=== PATIENT | male | born 1990 | race Caucasian/White ===

== ENCOUNTER 2024-09-09 07:23 | Emergency (ER) | payer OTHER, SELFPAY ==
[2024-09-09] VITALS (7 sets, daily range): BP systolic 132–180; BP diastolic 80–102; PULSE 51–82; RESP 18–24; TEMP 36.5; O2SAT 95–100; BMI 27.1
--- NOTE | 2024-09-09 07:52 | PC.NURSE ---
Pt arrived to ED today because he has been having 5/10 substernal & left-sided cp since yesterday afternoon. States that when he palpates his sternum and left chest the pain gets worse. Denies SOB, n/v and abd pain. Also states that he drinks approximately 375ml hard etoh per day. Currently denies any withdrawal sx or hx of withdrawal. A&Ox4.
--- NOTE | 2024-09-09 07:56 | EKG_ITS ---
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
--- NOTE | 2024-09-09 07:56 | DI.RAD.S_ITS ---
PROCEDURE: XR CHEST 1V INDICATIONS: chest pain TECHNIQUE: One view of the chest was acquired. COMPARISON: None. FINDINGS: Surgical changes and devices: None. Lungs and pleura: Lungs are clear. No pleural effusions or pneumothorax. Mediastinum: Mediastinal contours appear normal. Heart size is normal. Bones and chest wall: No suspicious bony lesions. Overlying soft tissues appear unremarkable. IMPRESSION: No acute cardiopulmonary pathology. Dictated by: Matt Jj M.D. on 09/09/2024 at 8:24 Approved by: Matt Jj M.D. on 09/09/2024 at 8:24
[2024-09-09 08:02] LABS: Add Manual Diff / Slide Review NO; Basophils Absolute Auto 0 /uL (0-100); Basophils Percent Auto 0.6 % (0-2); Eosinophils Absolute Auto 200 /uL (0-450); Eosinophils Percent Auto 3.5 % (2-4); Hematocrit 48.9 % (41-53); Hemoglobin 16.8 g/dL (13.5-17.5); Lymphocytes Absolute Auto 1900 /uL (1100-4500); Mean Corpuscular HGB Conc 34.4 % (30-36); Mean Corpuscular Hemoglobin 33.3 PG (26-34); Mean Corpuscular Volume 96.6 fL (80-100); Monocytes Absolute Auto 500 /uL (0-900); Monocytes Percent Auto 7.4 % (3-14); Neutrophils Absolute Auto 3600 /uL (1500-7000); Neutrophils Percent Auto 57.5 % (50-75); Platelet Count 223 X10^3/uL (150-400); Red Blood Cell Count 5.06 X10^6/uL (4.5-5.9); Red Cell Distribution Width 13.1 % (11.6-14.8); White Blood Cell Count 6.3 X10^3/uL (4.5-11.0)
[2024-09-09 08:04] LABS: INR 0.9 (0.9-1.3); Prothrombin Time 10.6 SECONDS (9.4-12.5)
[2024-09-09 08:07] LABS: PTT Partial Thromboplastin Tim 35 SECONDS (25.1-36.5)
--- NOTE | 2024-09-09 08:08 | ED_ITS ---
HPI - Chest Pain General Chief Complaint: Chest Pain Stated Complaint: chest Pain Time Seen by Provider: 09/09/24 08:00 History of Present Illness HPI narrative: patient here for constant left-sided chest pain that is reproducible with deep breath cough movement and palpation. Denies any prior history of heart attack strokes diabetes no history hypertension. No pertinent family history of coronary artery disease. Patient does not smoke. Does not have hypercholesteremia. Blood pressure noted. Patient in no distress. Patient has not tried any medications for his discomfort. Discomfort started yesterday. No cough cold congestion fever chills. No muscle strain. Related Data Allergies Allergy/AdvReac Type Severity Reaction Status Date / Time No Known Drug Allergies Allergy Verified 09/09/24 07:32 Review of Systems Review of Systems Narrative: GENERAL: Negative chills, fatigue, malaise, fever, sweats. HEENT: Negative sinus pain, ear pain, sore throat RESPIRATORY: Negative dyspnea, cough CARDIOVASCULAR: Positive chest pain, negative palpitations GASTROINTESTINAL: Negative vomiting, nausea, abdominal pain : Negative dysuria, frequency, hematuria MUSCULOSKELETAL: Negative muscle or bony pain SKIN: Negative rash, skin lesions NEUROLOGIC: Negative weakness, numbness ROS Unobtainable: All systems reviewed & are unremarkable except as noted in HPI and below Patient History Social History Smoking Status: Unknown if ever smoked Smoking Status: Unknown if ever smoked Alcohol type: hard liquor Exam Narrative Exam Narrative: GENERAL: in no distress, not toxic not dyspneic HEAD: Normocephalic. EYES: Pupils equal round ENT: Mucous membranes moist. NECK: Trachea midline. CARDIOVASCULAR: Regular rate and rhythm RESPIRATORY: Clear to auscultation. Breath sounds equal bilaterally. No wheezes, rales, or rhonchi. Reproducible left pectoral chest tenderness and sternal tenderness on palpation and on deep breath and coughing and movement. No crepitus. No rash. GASTROINTESTINAL: Abdomen soft, non-tender EXTREMITIES: No gross deformities. BACK: No flank tenderness. NEURO: AOx4. Clear speech SKIN: Warm and dry PSYCH: Not anxious, is cooperative Initial Vital Signs Initial Vital Signs: Vital Signs Pulse Rate 51 L 09/09/24 07:32 Respiratory Rate 18 09/09/24 07:32 Blood Pressure 180/102 H 09/09/24 07:32 Pulse Oximetry 100 09/09/24 07:32 Oxygen Delivery Method Room Air 09/09/24 07:32 Scores HEART Score Heart Score history: Slightly Suspicious Heart Score EKG: Non-Specific repolarization disturbance Heart Score Age: < 45 years old Heart Score risk factors: No known risk factors Heart Score troponin: < or = to normal limit Heart Score Total: 1 Course Orders Ordered: Discontinued Medications Aspirin (Aspirin 81 Mg Chew Tab) 324 mg PO NOW ONE Stop: 09/09/24 07:57 Last Admin: 09/09/24 08:36 Dose: 324 mg Documented By: LEA Ketorolac Tromethamine (Ketorolac 30 Mg/Ml Vial) 15 mg IV NOW ONE Stop: 09/09/24 09:30 Last Admin: 09/09/24 09:42 Dose: Not Given Documented By: LEA Vital Signs Vital signs: Vital Signs - 8 hr 09/09/24 07:32 09/09/24 07:32 09/09/24 07:37 Temperature Pulse Rate 51 L 82 68 Respiratory Rate 18 23 Blood Pressure 180/102 H Pulse Oximetry 100 100 99 Oxygen Delivery Method Room Air 09/09/24 07:37 09/09/24 07:39 09/09/24 08:00 Temperature 97.7 F Pulse Rate Respiratory Rate Blood Pressure 151/86 H 142/91 H Pulse Oximetry Oxygen Delivery Method 09/09/24 08:00 09/09/24 08:30 09/09/24 08:30 Temperature Pulse Rate 66 62 Respiratory Rate 24 20 Blood Pressure 132/80 Pulse Oximetry 95 97 Oxygen Delivery Method 09/09/24 09:00 09/09/24 09:00 Temperature Pulse Rate 63 Respiratory Rate 21 Blood Pressure 143/85 H Pulse Oximetry 96 Oxygen Delivery Method MDM - Chest Pain Lab Data 09/09/24 07:36 09/09/24 07:36 Labs: Lab Results 09/09/24 Range/Units 07:36 WBC 6.3 (4.5-11.0) X10^3/uL RBC 5.06 (4.5-5.9) X10^6/uL Hgb 16.8 (13.5-17.5) g/dL Hct 48.9 (41-53) % MCV 96.6 (80-100) fL MCH 33.3 (26-34) PG MCHC 34.4 (30-36) % RDW 13.1 (11.6-14.8) % Plt Count 223 (150-400) X10^3/uL Neut % (Auto) 57.5 (50-75) % Lymph % (Auto) 31.0 (25-40) % [place] % (Auto) 7.4 (3-14) % Eos % (Auto) 3.5 (2-4) % Baso % (Auto) 0.6 (0-2) % Neut # (Auto) 3600 (5971-4211) /uL Lymph # (Auto) 1900 (5366-3499) /uL [place] # (Auto) 500 (0-900) /uL Eos # (Auto) 200 (0-450) /uL Baso # (Auto) 0 (0-100) /uL PT 10.6 (9.4-12.5) SECONDS INR 0.9 (0.9-1.3) APTT 35 (25.1-36.5) SECONDS D-Dimer 239 (<500) ng/ml Sodium 140 (137-145) mmol/L Potassium 3.7 (3.4-5.1) mmol/L Chloride 103 (98-107) mmol/L Carbon Dioxide 24 (22-32) mmol/L BUN 13 (9-20) mg/dL Creatinine 1.24 (0.66-1.25) mg/dL Estimated GFR > 60 (>60) mL/min BUN/Creatinine Ratio 10.5 (6-22) Glucose 107 H (70-100) mg/dL Calcium 10.0 (8.4-10.2) mg/dL Magnesium 1.9 (1.6-2.3) mg/dL Total Bilirubin 1.5 H (0.2-1.3) mg/dL AST 86 H (17-59) IU/L ALT 94 H (<50) IU/L Alkaline Phosphatase 91 (38-126) U/L Total Creatine Kinase 108 (55-170) U/L Troponin I < 0.012 (0.01-0.034) ng/mL NT-Pro-B Natriuret Pep < 20 (<125) pg/mL Total Protein 9.0 H (6.3-8.2) g/dL Albumin 5.0 (3.5-5.0) g/dL Globulin 4.0 (1.7-4.1) g/dL Albumin/Globulin Ratio 1.3 (1.0-2.8) Lipase 80 (23-300) U/L Imaging Data Chest x-ray: Radiologist's Impression: [address] [address] XRay Report Signed Patient: Joshua Reeder MR#: [id number] : 1990 Acct:[id number] Age/Sex: 33 / M Date of Service: 09/09/24 Loc: ED Accession Number: [id number] Procedure: XR chest 1V Ordering Provider: Ruperto Marr MD PROCEDURE: XR CHEST 1V INDICATIONS: chest pain TECHNIQUE: One view of the chest was acquired. COMPARISON: None. FINDINGS: Surgical changes and devices: None. Lungs and pleura: Lungs are clear. No pleural effusions or pneumothorax. Mediastinum: Mediastinal contours appear normal. Heart size is normal. Bones and chest wall: No suspicious bony lesions. Overlying soft tissues appear unremarkable. IMPRESSION: No acute cardiopulmonary pathology. Dictated by: Matt Jj M.D. on 09/09/2024 at 8:24 Approved by: Matt Jj M.D. on 09/09/2024 at 8:24 [facility] Narrative Medical decision making narrative: patient here for constant left-sided chest pain that is reproducible with deep breath cough movement and palpation. Denies any prior history of heart attack strokes diabetes no history hypertension. No pertinent family history of coronary artery disease. Patient does not smoke. Does not have hypercholesteremia. Blood pressure noted. Patient in no distress. Patient has not tried any medications for his discomfort. Discomfort started yesterday. No cough cold congestion fever chills. No muscle strain. After history and exam, CBC CMP troponin D-dimer EKG chest x-ray Toradol [facility] Medical records reviewed: no recent visit for this complaint Differential considered: Includes but not limited to STEMI non-STEMI costochondritis pleurisy pulmonary embolism pneumonia pericarditis pneumothorax Lab Test results independently reviewed as above. Pertinent findings: WBC 6.3 hemoglobin 16.8 INR 0.9 sodium 140 potassium 3.7 glucose 107 AST 86 ALT 94 troponin less than 0.012 BNP less than 20 D-dimer 239 Independently reviewed EKG sinus bradycardia rate 49 incomplete right bundle branch block Imaging studies independently reviewed: Chest x-ray no acute finding Consultations: None indicated at this time Treatments: Toradol Re-evaluations: 9:42 a.m.. Blood pressure 143/85 without intervention. Patient much more relaxed. Reviewed results with patient. Likely costochondritis/pleurisy. Patient has low heart risk factors. He does see primary care through the [facility]. he has been informed in the past he may need blood pressure medication in the future. He will follow up with them. Return precautions reviewed. Informed patient liver enzymes may be evaluated due to his regular alcohol use. Return precautions reviewed. He desires discharge home. Discussion: Appropriate for discharge home exam is reassuring. Patient has low heart score of 1. Pain is reproducible. Likely not cardiac. Return precautions reviewed with patient. He desires discharge home. Diagnosis: Costochondritis pleurisy atypical chest pain Discharge Plan Departure Patient Disposition: Home Clinical Impression: Atypical chest pain Instructions: DI for Atypical Chest Pain, DI for Costochondritis, DI for Pleurisy, DI for Chest Pain Activity Restrictions/Additional Instructions: Your exam and laboratory studies are reassuring. Please review discharge instructions and information regarding pleurisy and costochondritis. May continue ibuprofen for discomfort. Please see your family doctor within a week at the [facility] for re-evaluation of your blood pressure measurements. You may need to be started on blood pressure medication with your family doctor. It has improved while here. Please decrease your alcohol use. This can elevate your blood pressure as well. This can also cause elevation in your liver enzymes on blood studies. Return if worse if any questions or concerns Referrals: ProviderScott [Primary Care Provider] - Stand Alone Forms: Patient Portal/API/Survey, Work Release Note
[2024-09-09 08:13] LABS: Alanine Aminotransferase 94 IU/L (<50); Albumin Globulin Ratio 1.3 (1.0-2.8); Alkaline Phosphatase 91 U/L (38-126); Aspartate Aminotransferase 86 IU/L (17-59); BUN Creatinine Ratio 10.5 (6-22); Bilirubin Total 1.5 mg/dL (0.2-1.3); Blood Urea Nitrogen 13 mg/dL (9-20); Carbon Dioxide 24 mmol/L (22-32); Chloride 103 mmol/L (98-107); Creatine Kinase 108 U/L (55-170); Estimated Glomerular Filt Rate > 60 mL/min (>60); Glucose 107 mg/dL (70-100); HEMOLYSIS < 15 (0-50); Lipase 80 U/L (23-300); Magnesium 1.9 mg/dL (1.6-2.3); Potassium 3.7 mmol/L (3.4-5.1); Sodium 140 mmol/L (137-145)
[2024-09-09 08:18] LABS: D Dimer 239 ng/ml (<500)
[2024-09-09 08:24] LABS: NT-proBNP (BNP-Adult 18+) < 20 pg/mL (<125); Troponin I < 0.012 ng/mL (0.01-0.034)
[2024-09-09] MEDS: ASPIRIN 81 MG CHEW TAB 324 MG PO (08:36)
== END 2024-09-09 09:50 | disposition home or self-care (01) ==
PROVIDERS: Emergency Provider Emergency Medicine
DX: R07.89 Other chest pain (principal)
CPT/HCPCS: 36415; 71045; 80053; 82550; 83690; 83735; 83880; 84484; 85025; 85379; 85610; 85730; 93005; 93010; 99284